=== PATIENT | female | born 1985 | race Caucasian/White ===

== ENCOUNTER 2025-08-02 05:29 | Emergency (ER) | payer SELFPAY ==
[~2025-08-02] VITALS: Ht 149.9 cm; Wt 49.9 kg
[2025-08-02 06:49] VITALS: BP 105/65; TEMP 98; O2SAT 98
== END 2025-08-02 06:50 | disposition home or self-care (01) ==
LOC: ER 05:51
DX: Z97.5 Presence of (intrauterine) contraceptive device (principal); R50.9 Fever, unspecified; R19.7 Diarrhea, unspecified